=== PATIENT | female | born 1985 | race Hispanic/Latino ===

== ENCOUNTER 2023-07-01 09:45 | Emergency (ER) | payer SELFPAY ==
[2023-07-01] MEDS ORDERED: Acetaminophen 500 MG TAB ONE (10:36)
[2023-07-01 11:13] LABS: Bacteria/HPF None Seen HPF (None Seen); Bilirubin Negative (Negative); Blood, Urine 3+ (Negative); CAUTI Indications for Culture Dysuria,urgency,freq; Clarity Turbid (Clear); Glucose, Urine (Dipstick) Normal (Negative); Ketone, Urine Negative (Negative); Leukocyte 25 Leu/uL (Negative); Nitrite Negative (Negative); Protein, Urine (Dipstick) 10 mg/dL (Neg-Trace); RBC/HPF Greater than 50 HPF (0-3); Specific Gravity, Urine 1.024 (1.002-1.036); Squamous Epithelial 0-3 HPF (0-3)
[2023-07-01 11:16] LABS: Urine Culture Reflex No No
[2023-07-01 11:45] LABS: SARS-CoV-2 NAA Rapid Test Not Detected (NotDetected)
[2023-07-01 11:49] LABS: Specific Gravity 1.024 (1.002-1.036)
[2023-07-01 11:54] LABS: Pregnancy Test - Urine (BHCG) Negative (Negative); Pregu Control Background? CLEAR/WHITE (CLR/WHITE); Pregu Control Bar Appear? YES (CONTROL BAR)
== END 2023-07-01 12:18 | disposition home or self-care (01) ==
LOC: ERS 09:45
DX: N94.6 Dysmenorrhea, unspecified (principal); J02.0 Streptococcal pharyngitis; Z55.6 Problems related to health literacy; Z75.3 Unavailability and inaccessibility of health-care facilities
CPT/HCPCS: 81001; 81025; 87430; 99284